=== PATIENT | female | born 1990 | race Hispanic/Latino ===

== ENCOUNTER 2016-09-30 10:04 | Emergency (ER) | payer SELFPAY ==
[2016-09-30 11:19] LABS: Bilirubin,Urine NEG (Negative); Blood,Urine SM (Negative); Ketones,Urine NEG (Negative); Leukocyte Esterase,Urine NEG (Negative); Mucus,Urine 2+ /HPF; Nitrite,Urine NEG (Negative); Protein,Urine <15 mg/dL mg/dL (Negative); WBC,Urine < 1.0 /HPF (0.0-6.0)
[2016-09-30 11:32] LABS: Basophils % (Auto) 1.1 % (0.0-1.8); Eosinophils % (Auto) 1.9 % (0.0-4.3); Hematocrit 42.9 % (30.3-42.9); Hemoglobin 14.4 gm/dl (10.1-14.3); Mean Corpuscular HGB Conc 34 % (30-34); Mean Corpuscular Hemoglobin 28 pg (28-32); Mean Corpuscular Volume 84 fl (79-97); Platelet Count 230 K/mm3 (140-440); Red Blood Count 5.11 M/mm3 (3.65-5.03); Red Cell Distribution Width 13.5 % (13.2-15.2); White Blood Count 9.3 K/mm3 (4.5-11.0)
--- NOTE | 2016-09-30 13:17 | Emergency Department Report ---
HPI - General Chief Complaint: Vaginal Bleeding Time Seen by Provider: 09/30/16 12:15 - HPI HPI: Chief complaint: Vaginal bleeding HPI: Patient is 26-year-old female is 2 para 2 who states she's been having vaginal bleeding for at least 3 weeks. Patient states she's always had irregular menstrual cycles but never had one that lasted this long. Patient's last normal menstrual period was August 27 which last for a week and then she started bleeding again on September 13. No nausea, vomiting, diarrhea or fever. Patient states she is occasionally dizzy and at times has cramping pain similar to menstrual cramps. Mode of arrival: private car Source: Patient Began: 3 weeks Duration: 3 weeks Context: See above Quality: See above Severity: Minimal Improved with: Nothing Worsened with: Nothing Associated signs and symptoms: See above ED Past Medical Hx - Past Medical History Previous Medical History?: Yes Additional medical history: Vaginal delivery x 2 - Surgical History Past Surgical History?: Yes Hx Cholecystectomy: Yes - Social History Smoking Status: Current Every Day Smoker Substance Use Type: Alcohol, Non Opiate Pain - Medications Home Medications: Home Medications Medication Instructions Recorded Confirmed Last Taken Type medroxyPROGESTERone ACETATE 10 mg PO QDAY #10 tablet 09/30/16 Unknown Rx [Provera] ED Review of Systems ROS: Stated complaint: POSS MISCARRIAGE Other details as noted in HPI ROS Constitutional: No fever ENT: No uri symptoms Cardiovascular: No chest pain Respiratory: No sob or cough GI: No nausea vomiting or diarrhea : No dysuria frequency or urgency, Skin: No rash Neuro: No focal weakness or numbness Psych: No depression Feng/lymph: No edema Physical Exam - Physical Exam Vital Signs: Vital Signs 09/30/16 09/30/16 10:23 12:07 Temperature 98.7 F Pulse Rate 77 Respiratory 20 16 Rate Blood Pressure 119/75 O2 Sat by Pulse 100 100 Oximetry Physical Exam: GENERAL: The patient is well-developed well-nourished . HEENT: Normocephalic. Atraumatic. Extraocular motions are intact. Patient has moist mucous membranes. NECK: Supple. No meningitic signs are noted. There is no adenopathy noted. CHEST/LUNGS: Clear to auscultation. There is no respiratory distress noted. HEART/CARDIOVASCULAR: Regular. There is no tachycardia. There is no gallop rub or murmur. ABDOMEN: Abdomen is soft, nontender. Patient has normal bowel sounds. There is no abdominal distention. : Minimal amount of vaginal bleeding consistent with menstrual blood. SKIN: There is no rash. There is no edema. There is no diaphoresis. NEURO: The patient is awake, alert, and oriented. The patient is cooperative. The patient has no focal neurologic deficits. The patient has normal speech. MUSCULOSKELETAL: There is no tenderness or deformity. There is no limitation range of motion. There is no evidence of acute injury. ED Course Vital Signs 09/30/16 09/30/16 10:23 12:07 Temperature 98.7 F Pulse Rate 77 Respiratory 20 16 Rate Blood Pressure 119/75 O2 Sat by Pulse 100 100 Oximetry ED Medical Decision Making - Lab Data Result diagrams: 09/30/16 10:47 Laboratory Tests 09/30/16 10:47 Urine HCG, Qual Negative Critical care attestation.: If time is entered above; I have spent that time in minutes in the direct care of this critically ill patient, excluding procedure time. ED Disposition Clinical Impression: Dysfunctional uterine bleeding Disposition: DISCHARGED TO HOME OR SELFCARE Is pt being admited?: No Does the pt Need Aspirin: No Condition: Stable Instructions: Dysfunctional Uterine Bleeding (ED) Prescriptions: medroxyPROGESTERone ACETATE [Provera] 10 mg PO QDAY #10 tablet Referrals: PRIMARY CAREMD [Primary Care Provider] - 3-5 Days MAXIMILIANO SWAIN MD [Staff Physician] - 7-10 days Time of Disposition: 13:17
[2016-09-30 13:42] VITALS: BP 102/64
== END 2016-09-30 13:37 | disposition home or self-care (01) ==
LOC: ED 10:04
DX: N93.8 Other specified abnormal uterine and vaginal bleeding (principal); Z90.49 Acquired absence of other specified parts of digestive tract; F17.200 Nicotine dependence, unspecified, uncomplicated; Z88.0 Allergy status to penicillin
CPT/HCPCS: 36415; 81001; 81025; 85025; 99283

== ENCOUNTER 2021-04-20 14:27 | Emergency (ER) | payer MEDICAID ==
[2021-04-20 14:47] VITALS: BP 127/81
--- NOTE | 2021-04-20 16:51 | Emergency Department Report ---
ED Female HPI - General Chief complaint: Vaginal Bleeding Stated complaint: VAGINAL BLEEDING FOR 30 MINS Time Seen by Provider: 04/20/21 16:42 Source: patient Mode of arrival: Ambulatory Limitations: No Limitations - History of Present Illness Initial comments: Patient is a 31-year-old female who presents emergency room complaints of vaginal bleeding. She states that the bleeding increased today around 2:00 pm. She states that she has had to change her tampon approximately every hour and a half. She states that she had her regular menstrual cycle April 06 through . States that she typically has a cycle for 1 week. She states that beginning a couple days ago she began having bleeding again despite just recently having a cycle. Patient states that she was placed on control approximately 4 months ago by her [employer] [employer] and states that she is taking a progestin only pill. She denies any pain, fever, nausea, vomiting, diarrhea, dysuria, abnormal vaginal discharge. She states that she has never had an abnormal Pap smear. She has an allergy to penicillin. She denies any past medical history. - Related Data Previous Rx's Medication Instructions Recorded Last Taken Type medroxyPROGESTERone ACETATE 10 mg PO QDAY #10 tablet 09/30/16 Unknown Rx [Provera] medroxyPROGESTERone ACETATE 10 mg PO DAILY 10 Days #10 tablet 04/20/21 Unknown Rx [Provera] Allergies Allergy/AdvReac Type Severity Reaction Status Date / Time Penicillins Allergy Unknown Verified 09/30/16 10:23 ED Review of Systems ROS: Stated complaint: VAGINAL BLEEDING FOR 30 MINS Other details as noted in HPI Comment: All other systems reviewed and negative ED Past Medical Hx - Past Medical History Previous Medical History?: Yes Additional medical history: Vaginal delivery x 2 - Surgical History Past Surgical History?: Yes Hx Cholecystectomy: Yes - Social History Smoking Status: Current Every Day Smoker Substance Use Type: Alcohol, Non Opiate Pain - Medications Home Medications: Home Medications Medication Instructions Recorded Confirmed Last Taken Type medroxyPROGESTERone ACETATE 10 mg PO QDAY #10 tablet 09/30/16 Unknown Rx [Provera] medroxyPROGESTERone ACETATE 10 mg PO DAILY 10 Days #10 tablet 04/20/21 Unknown Rx [Provera] ED Physical Exam - General Limitations: No Limitations General appearance: alert, in no apparent distress - Head Head exam: Present: atraumatic, normocephalic - Eye Eye exam: Present: normal appearance - ENT ENT exam: Present: mucous membranes moist - Respiratory Respiratory exam: Present: normal lung sounds bilaterally. Absent: respiratory distress, wheezes, rales, rhonchi, stridor, chest wall tenderness, accessory mu scle use, decreased breath sounds, prolonged expiratory - Cardiovascular Cardiovascular Exam: Present: regular rate, normal rhythm, normal heart sounds. Absent: systolic murmur, diastolic murmur, rubs, gallop - GI/Abdominal GI/Abdominal exam: Present: soft, normal bowel sounds. Absent: distended, tenderness, guarding, rebound, rigid - Neurological Exam Neurological exam: Present: alert, oriented X3 - Psychiatric Psychiatric exam: Present: normal affect, normal mood - Skin Skin exam: Present: warm, dry, intact ED Course Vital Signs 04/20/21 14:42 Temperature 98.5 F Pulse Rate 73 Respiratory 18 Rate Blood Pressure 127/81 [Right] O2 Sat by Pulse 97 Oximetry ED Medical Decision Making - Lab Data Result diagrams: 04/20/21 16:52 04/20/21 16:52 Lab Results 04/20/21 04/20/21 04/20/21 Range/Units 16:52 16:52 16:52 WBC 10.6 (4.5-11.0) K/mm3 RBC 5.13 H (3.65-5.03) M/mm3 Hgb 14.9 H (10.1-14.3) gm/dl Hct 43.0 H (30.3-42.9) % MCV 84 (79-97) fl MCH 29 (28-32) pg MCHC 35 H (30-34) % RDW 13.4 (13.2-15.2) % Plt Count 252 (140-440) K/mm3 Lymph % (Auto) 30.5 (13.4-35.0) % [place] % (Auto) 6.9 (0.0-7.3) % Eos % (Auto) 1.9 (0.0-4.3) % Baso % (Auto) 1.2 (0.0-1.8) % Lymph # (Auto) 3.2 (1.2-5.4) K/mm3 [place] # (Auto) 0.7 (0.0-0.8) K/mm3 Eos # (Auto) 0.2 (0.0-0.4) K/mm3 Baso # (Auto) 0.1 (0.0-0.1) K/mm3 Seg Neutrophils % 59.5 (40.0-70.0) % Seg Neutrophils # 6.3 (1.8-7.7) K/mm3 Sodium 140 (137-145) mmol/L Potassium 4.4 (3.6-5.0) mmol/L Chloride 104.4 (98-107) mmol/L Carbon Dioxide 25 (22-30) mmol/L Anion Gap 15 mmol/L BUN 9 (7-17) mg/dL Creatinine 0.6 (0.6-1.2) mg/dL Estimated GFR > 60 ml/min BUN/Creatinine Ratio 15 % Glucose 92 (65-100) mg/dL Calcium 9.4 (8.4-10.2) mg/dL Total Bilirubin 0.20 (0.1-1.2) mg/dL AST 11 (5-40) units/L ALT 13 (7-56) units/L Alkaline Phosphatase 85 (35-129) units/L Total Protein 6.9 (6.3-8.2) g/dL Albumin 4.2 (3.9-5) g/dL Albumin/Globulin Ratio 1.6 % HCG, Quant < 2 (0-4) mIU/mL - Medical Decision Making Patient is a 31-year-old female who presents emergency room complaints of vaginal bleeding. She states that the bleeding increased today around 2:00 pm. She states that she has had to change her tampon approximately every hour and a half. She states that she had her regular menstrual cycle April 06 through . States that she typically has a cycle for 1 week. She states that beginning a couple days ago she began having bleeding again despite just recently having a cycle. Patient states that she was placed on control approximately 4 months ago by her [employer] and states that she is taking a progestin only pill. She denies any pain, fever, nausea, vomiting, diarrhea, dysuria, abnormal vaginal discharge. She states that she has never had an abnormal Pap smear. She has an allergy to penicillin. She denies any past medical history. Vitals are normal. No abdominal tenderness on exam. Labs are normal. H&H is normal. hCG quant is less than 2. Given prescription for Prov era. Discussed the importance of [employer] [employer] follow-up. Discussed return cautions. Advised patient Please take medication as prescribed. Do not take your control while taking this medication. May resume your control after you have completed a course of Provera. Follow-up with your [facility] [employer]. Return to emergency room for any new or worsening symptoms. Critical care attestation.: If time is entered above; I have spent that time in minutes in the direct care of this critically ill patient, excluding procedure time. ED Disposition Clinical Impression: Menorrhagia Qualifiers: Menorrhagia type: with irregular cycle Qualified Code(s): N92.1 - Excessive and frequent menstruation with irregular cycle Disposition: HOME / SELF CARE / HOMELESS Is pt being admited?: No Does the pt Need Aspirin: No Condition: Stable Instructions: Abnormal Uterine Bleeding, Menorrhagia Additional Instructions: Please take medication as prescribed. Do not take your control while taking this medication. May resume your control after you have completed a course of Provera. Follow-up with your [facility] [employer]. Return to emergency room for any new or worsening symptoms. Prescriptions: medroxyPROGESTERone ACETATE [Provera] 10 mg PO DAILY 10 Days #10 tablet Referrals: your, director of medical staff services [Other] - 2-3 Days Forms: Work/School Release Form(ED) Time of Disposition: 17:35 Print Language: WALLISIAN
[2021-04-20 17:10] LABS: Basophils # (Auto) 0.1 K/mm3 (0.0-0.1); Basophils % (Auto) 1.2 % (0.0-1.8); Eosinophils # (Auto) 0.2 K/mm3 (0.0-0.4); Eosinophils % (Auto) 1.9 % (0.0-4.3); Hemoglobin 14.9 gm/dl (10.1-14.3); Lymphocytes # (Auto) 3.2 K/mm3 (1.2-5.4); Lymphocytes % (Auto) 30.5 % (13.4-35.0); Mean Corpuscular HGB Conc 35 % (30-34); Mean Corpuscular Volume 84 fl (79-97); Monocytes # (Auto) 0.7 K/mm3 (0.0-0.8); Monocytes % (Auto) 6.9 % (0.0-7.3); Platelet Count 252 K/mm3 (140-440); Red Blood Count 5.13 M/mm3 (3.65-5.03); Red Cell Distribution Width 13.4 % (13.2-15.2)
[2021-04-20 17:27] LABS: Alanine Aminotransferase 13 units/L (7-56); Albumin 4.2 g/dL (3.9-5); Blood Urea Nitrogen 9 mg/dL (7-17); Calcium 9.4 mg/dL (8.4-10.2); Hemolysis Index 9
[2021-04-20 17:29] LABS: BUN/Creatinine Ratio 15
== END 2021-04-20 18:30 | disposition home or self-care (01) ==
LOC: ED 14:27
DX: N92.0 Excessive and frequent menstruation with regular cycle (principal); Z98.890 Other specified postprocedural states; F17.200 Nicotine dependence, unspecified, uncomplicated; Z88.0 Allergy status to penicillin
CPT/HCPCS: 36415; 80053; 84702; 85025; 99283